=== PATIENT | female | born 1935 | race Caucasian/White ===

== ENCOUNTER 2021-05-06 10:01 | Outpatient (CLI) | payer MEDICARE | END 2021-05-06 10:02 | disposition home or self-care (01) | LOC: CSHCT 10:01 | PROVIDERS: ATTEND Internal Medicine Hematology & Oncology | DX: C91.40 Hairy cell leukemia not having achieved remission (principal); R59.1 Generalized enlarged lymph nodes; D73.9 Disease of spleen, unspecified; K76.9 Liver disease, unspecified; R91.8 Other nonspecific abnormal finding of lung field; K57.30 Diverticulosis of large intestine without perforation or abscess without bleeding; Z90.710 Acquired absence of both cervix and uterus | CPT/HCPCS: 74177 ==